=== PATIENT | female | born 2000 | race American Indian/Alaskan Native ===

== ENCOUNTER 2021-10-26 11:10 | Outpatient (CLI) | payer OTHER | END 2021-10-26 13:10 | disposition home or self-care (01) | LOC: LAB 11:10 → APU 12:27 → LAB 13:10 | PROVIDERS: ATTEND Obstetrics & Gynecology | DX: O26.893 Other specified pregnancy related conditions, third trimester (principal); Z67.31 Type AB blood, Rh negative; Z3A.28 28 weeks gestation of pregnancy | CPT/HCPCS: 86850; 86900; 86901; 96372; J2790 ==